=== PATIENT | female | born 1960 | race American Indian/Alaskan Native ===

== ENCOUNTER 2017-01-07 10:56 | Emergency (ER) | payer MEDICARE ==
[2017-01-07 11:35] VITALS: BP 145/76
[2017-01-07 12:41] LABS: Hematocrit 39.6 % (30.3-42.9); Hemoglobin 13.2 gm/dl (10.1-14.3); Mean Corpuscular HGB Conc 33 % (30-34); Mean Corpuscular Hemoglobin 29 pg (28-32); Mean Corpuscular Volume 88 fl (79-97); Platelet Count 299 K/mm3 (140-440); Red Blood Count 4.51 M/mm3 (3.65-5.03); Red Cell Distribution Width 14.4 % (13.2-15.2)
[2017-01-07 12:43] LABS: Anion Gap 16 mmol/L; BUN/Creatinine Ratio 6.66; Blood Urea Nitrogen 4 mg/dL (7-17); Calcium 9.4 mg/dL (8.4-10.2); Carbon Dioxide 27 mmol/L (22-30); Chloride 104.7 mmol/L (98-107); Glucose 112 mg/dL (65-100); Potassium 3.6 mmol/L (3.6-5.0); Sodium 144 mmol/L (137-145)
[2017-01-07 13:47] LABS: Basophils % (Manual) 0 % (0.0-1.8); Blastocytes % (Manual) 0 %; Eosinophils % (Manual) 0 % (0.0-4.3)
[2017-01-07 13:48] LABS: Diff Status Complete; RBC Morphology Normal
--- NOTE | 2017-01-07 15:45 | XRay Report ---
Chest 2 views: History: Chest pain. Findings: Heart size is upper limit of normal. Trachea is midline. No consolidation, pneumothorax or pleural effusion. Impression: No acute cardiopulmonary findings.
[2017-01-07] MEDS ORDERED: TORADOL IM ONE (16:19)
--- NOTE | 2017-01-07 16:24 | Emergency Department Report ---
ED Shortness of Breath HPI - General Chief Complaint: Upper Respiratory Infection Stated Complaint: CHEST COLD Time Seen by Provider: 01/07/17 16:15 Source: patient Mode of arrival: Ambulatory Limitations: No Limitations - History of Present Illness Initial Comments: 56 years old coming today with a main complaint of shortness of breath cough and chest pain this pain going on for 3 days symptoms started with an upper respiratory symptoms including runny nose and now she's been coughing a yellowish sputum denied any fever. She describes her chest pain as sharp left sided not radiating worse when she takes a deep breath MD Complaint: shortness of breath, cough, chest pain -: Gradual, days(s) (3 days) Severity: moderate Pain Scale: 5 Quality: sharp - Related Data Previous Rx's Medication Instructions Recorded Last Taken Type ALBUTEROL Inhaler [ProAir HFA 2 puff IH QID PRN #1 inhalation 01/07/17 Unknown Rx Inhaler] Amoxicillin [Amoxicillin TAB] 875 mg PO BID #14 tablet 01/07/17 Unknown Rx P-Ephed HCl/Codeine/Guaifen 10 ml PO Q4H PRN #100 ml 01/07/17 Unknown Rx [Cheratussin DAC 30-10-100 mg/5 ml] Allergies Allergy/AdvReac Type Severity Reaction Status Date / Time No Known Allergies Allergy Unverified 01/07/17 11:30 ED Review of Systems ROS: Stated complaint: CHEST COLD Other details as noted in HPI Comment: All other systems reviewed and negative Constitutional: denies: chills, diaphoresis ENT: throat pain Respiratory: cough, shortness of breath Cardiovascular: chest pain Gastrointestinal: denies: nausea, vomiting ED Past Medical Hx - Past Medical History Previous Medical History?: Yes Hx Hypertension: Yes Hx Diabetes: Yes - Surgical History Past Surgical History?: Yes Additional Surgical History: Colonoscopy - Social History Smoking Status: Current Every Day Smoker Substance Use Type: Alcohol, Prescribed - Medications Home Medications: Home Medications Medication Instructions Recorded Confirmed Last Taken Type ALBUTEROL Inhaler [ProAir HFA 2 puff IH QID PRN #1 inhalation 01/07/17 Unknown Rx Inhaler] Amoxicillin [Amoxicillin TAB] 875 mg PO BID #14 tablet 01/07/17 Unknown Rx P-Ephed HCl/Codeine/Guaifen 10 ml PO Q4H PRN #100 ml 09/20/17 Unknown Rx [Cheratussin DAC 30-10-100 mg/5 ml] ED Physical Exam - General Limitations: No Limitations General appearance: alert - Head Head exam: Present: atraumatic, normocephalic - Respiratory Respiratory exam: Present: decreased breath sounds. Absent: respiratory distress, wheezes, rales, rhonchi - Cardiovascular Cardiovascular Exam: Present: regular rate, normal rhythm, normal heart sounds - GI/Abdominal GI/Abdominal exam: Present: soft. Absent: tenderness, guarding, rebound, normal bowel sounds, mass, bruit, pulsatile mass - Extremities Exam Extremities exam: Present: normal inspection - Back Exam Back exam: Present: normal inspection. Absent: CVA tenderness (R), CVA tenderness (L) - Neurological Exam Neurological exam: Present: alert, oriented X3, CN II-XII intact - Skin Skin exam: Present: warm, intact, normal color ED Course Vital Signs 01/07/17 11:30 Temperature 98.8 F Pulse Rate 62 Respiratory 18 Rate Blood Pressure 145/76 O2 Sat by Pulse 98 Oximetry - Reevaluation(s) Reevaluation #1: 01/07/17 16:23 Patient stated that she is feeling better. Discharged patient to follow up with her primary care physician if symptoms get worse patient to come back to the ER. ED Medical Decision Making - Lab Data Result diagrams: 01/07/17 12:11 01/07/17 12:11 - EKG Data -: EKG Interpreted by Me EKG shows normal: sinus rhythm - EKG Data Interpretation: no acute changes - Radiology Data Radiology results: report reviewed Critical care attestation.: If time is entered above; I have spent that time in minutes in the direct care of this critically ill patient, excluding procedure time. ED Disposition Clinical Impression: Chest pain, Acute bronchitis Disposition: DC-01 TO HOME OR SELFCARE Is pt being admited?: No Condition: Stable Instructions: Chest Pain (ED), Costochondritis (ED), Acute Bronchitis (ED) Prescriptions: ALBUTEROL Inhaler [ProAir HFA Inhaler] 2 puff IH QID PRN #1 inhalation PRN Reason: Shortness Of Breath Amoxicillin [Amoxicillin TAB] 875 mg PO BID #14 tablet P-Ephed HCl/Codeine/Guaifen [Cheratussin DAC 30-10-100 mg/5 ml] 10 ml PO Q4H PRN #100 ml PRN Reason: Cough Referrals: INDERJIT STEVEN MD [Primary Care Provider] - 3-5 Days
== END 2017-01-07 16:37 | disposition home or self-care (01) ==
LOC: ED 10:56
DX: J20.9 Acute bronchitis, unspecified (principal); R07.9 Chest pain, unspecified; I10 Essential (primary) hypertension; E11.9 Type 2 diabetes mellitus without complications
CPT/HCPCS: 36415; 71020; 80048; 84484; 85007; 85025; 93005; 93010; 96372; 99284; J1885

== ENCOUNTER 2017-04-30 10:01 | Emergency (ER) | payer MEDICARE ==
[2017-04-30 10:48] VITALS: BP 128/83
--- NOTE | 2017-04-30 16:13 | Emergency Department Report ---
ED ENT HPI - General Chief complaint: Dental/Oral Stated complaint: TOOTHACHE Time Seen by Provider: 04/30/17 16:12 Source: patient Mode of arrival: Ambulatory Limitations: No Limitations - History of Present Illness Initial comments: 56-year-old female past medical history diabetes hypertension periodontal disease and multiple cavities presents with complaint of acute on chronic left upper toothache. Patient has multiple severe dental cavities. Patient denies fevers chills pus or blood drainage from mouth. Speaking in full sentences no trismus noted drooling no stridor. Patient states she has been trying to see a dentist but has not been able to due to insurance issues. MD complaint: tooth pain Onset/Timin -: week(s) Location: tooth # 1 - Multiple dental cavities with small dental abscess here Severity scale (0 -10): 6 Quality: aching Consistency: constant Improves with: none Worsens with: eating Context- Dental: history of dental caries, poor dental care Associated Symptoms: gum swelling, toothache - Related Data Previous Rx's Medication Instructions Recorded Last Taken Type ALBUTEROL Inhaler [ProAir HFA 2 puff IH QID PRN #1 inhalation 01/07/17 Unknown Rx Inhaler] Amoxicillin [Amoxicillin TAB] 875 mg PO BID #14 tablet 01/07/17 Unknown Rx Pseudoephed/Codeine/Guaifen 10 ml PO Q4H PRN #100 ml 01/07/17 Unknown Rx [Cheratussin DAC 30-10-100 mg/5 ml] Acetaminophen/Codeine [Tylenol 1 tab PO Q6H PRN #12 tab 04/30/17 Unknown Rx /Codeine # 3 tab] Benzocaine [Orajel Liquid 20%] 1 ml MM Q6HR PRN #1 bottle 04/30/17 Unknown Rx Chlorhexidine Mouthwash [Peridex] 15 ml MM BID #1 bottle 04/30/17 Unknown Rx Clindamycin [Clindamycin CAP] 300 mg PO Q6H #28 capsule 04/30/17 Unknown Rx Ibuprofen [Motrin] 800 mg PO Q8HR PRN #30 tablet 04/30/17 Unknown Rx Allergies Allergy/AdvReac Type Severity Reaction Status Date / Time No Known Allergies Allergy Unverified 01/07/17 11:30 ED Dental HPI - General Chief complaint: Dental/Oral Stated complaint: TOOTHACHE Time Seen by Provider: 04/30/17 16:12 Source: patient Mode of arrival: Ambulatory Limitations: No Limitations - Related Data Previous Rx's Medication Instructions Recorded Last Taken Type ALBUTEROL Inhaler [ProAir HFA 2 puff IH QID PRN #1 inhalation 01/07/17 Unknown Rx Inhaler] Amoxicillin [Amoxicillin TAB] 875 mg PO BID #14 tablet 01/07/17 Unknown Rx Pseudoephed/Codeine/Guaifen 10 ml PO Q4H PRN #100 ml 01/07/17 Unknown Rx [Cheratussin DAC 30-10-100 mg/5 ml] Acetaminophen/Codeine [Tylenol 1 tab PO Q6H PRN #12 tab 04/30/17 Unknown Rx /Codeine # 3 tab] Benzocaine [Orajel Liquid 20%] 1 ml MM Q6HR PRN #1 bottle 04/30/17 Unknown Rx Chlorhexidine Mouthwash [Peridex] 15 ml MM BID #1 bottle 04/30/17 Unknown Rx Clindamycin [Clindamycin CAP] 300 mg PO Q6H #28 capsule 04/30/17 Unknown Rx Ibuprofen [Motrin] 800 mg PO Q8HR PRN #30 tablet 04/30/17 Unknown Rx Allergies Allergy/AdvReac Type Severity Reaction Status Date / Time No Known Allergies Allergy Unverified 01/07/17 11:30 ED Review of Systems ROS: Stated complaint: TOOTHACHE Other details as noted in HPI Constitutional: denies: chills, fever Eyes: denies: eye pain, eye discharge, vision change ENT: dental pain. denies: ear pain, throat pain Respiratory: denies: cough, shortness of breath, wheezing Cardiovascular: denies: chest pain, palpitations Endocrine: no symptoms reported Gastrointestinal: denies: abdominal pain, nausea, diarrhea Genitourinary: denies: urgency, dysuria, discharge Musculoskeletal: denies: back pain, joint swelling, arthralgia Skin: denies: rash, lesions Neurological: denies: headache, weakness, paresthesias Psychiatric: denies: anxiety, depression Hematological/Lymphatic: denies: easy bleeding, easy bruising ED Past Medical Hx - Past Medical History Hx Hypertension: Yes Hx Diabetes: Yes - Surgical History Additional Surgical History: Colonoscopy - Social History Smoking Status: Current Every Day Smoker Substance Use Type: None - Medications Home Medications: Home Medications Medication Instructions Recorded Confirmed Last Taken Type ALBUTEROL Inhaler [ProAir HFA 2 puff IH QID PRN #1 inhalation 01/07/17 Unknown Rx Inhaler] Amoxicillin [Amoxicillin TAB] 875 mg PO BID #14 tablet 01/07/17 Unknown Rx Pseudoephed/Codeine/Guaifen 10 ml PO Q4H PRN #100 ml 01/07/17 Unknown Rx [Cheratussin DAC 30-10-100 mg/5 ml] Acetaminophen/Codeine [Tylenol 1 tab PO Q6H PRN #12 tab 04/30/17 Unknown Rx /Codeine # 3 tab] Benzocaine [Orajel Liquid 20%] 1 ml MM Q6HR PRN #1 bottle 04/30/17 Unknown Rx Chlorhexidine Mouthwash [Peridex] 15 ml MM BID #1 bottle 04/30/17 Unknown Rx Clindamycin [Clindamycin CAP] 300 mg PO Q6H #28 capsule 04/30/17 Unknown Rx Ibuprofen [Motrin] 800 mg PO Q8HR PRN #30 tablet 04/30/17 Unknown Rx ED Physical Exam - General Limitations: No Limitations General appearance: alert, in no apparent distress - Head Head exam: Present: atraumatic, normocephalic - Eye Eye exam: Present: normal appearance, PERRL, EOMI - ENT ENT exam: Present: mucous membranes moist - Expanded ENT Exam Expanded Teeth exam: Present: dental caries, dental tenderness # 1 - Dental Tenderness (dental abscess with cavities here) - Neck Neck exam: Present: normal inspection, full ROM - Respiratory Respiratory exam: Present: normal lung sounds bilaterally. Absent: respiratory distress - Cardiovascular Cardiovascular Exam: Present: regular rate, normal rhythm. Absent: systolic murmur, diastolic murmur, rubs, gallop - GI/Abdominal GI/Abdominal exam: Present: soft, normal bowel sounds - Extremities Exam Extremities exam: Present: normal inspection - Back Exam Back exam: Present: normal inspection - Neurological Exam Neurological exam: Present: alert, oriented X3 - Psychiatric Psychiatric exam: Present: normal affect, normal mood - Skin Skin exam: Present: warm, dry, intact, normal color. Absent: rash ED Course Vital Signs 04/30/17 10:42 Temperature 98.3 F Pulse Rate 108 H Respiratory 18 Rate Blood Pressure 128/83 O2 Sat by Pulse 96 Oximetry ED Medical Decision Making - Medical Decision Making A/P: dental cavities, toothache, dental abscess 1- Motrin when necessary, amoxicillin ten-day course, Orajel when necessary, Peridex mouthwash daily basis, short course codeine when necessary 2- I provided patient with information for multiple dental clinics to follow up and stressed the importance of dental follow-up as he has multiple cavities that require dental fixation or instrumentation 3- no clinical signs of facial abscess, no Amado's angina, no induration or cellulitis of floor of mouth or tongue 4- patient able to tolerate by mouth before discharge 5- no signs of facial infection. Advised patient that if she does not take antibiotics with follow-up with a dentist as soon as possible that a can result in potentially serious or dangerous infection to develop in jaw or face. Patient states that he understood these instructions. I advised patient to return to the ED for any persistent unrelenting nausea or vomiting fever or chills or headaches. Critical care attestation.: If time is entered above; I have spent that time in minutes in the direct care of this critically ill patient, excluding procedure time. ED Disposition Clinical Impression: Dental cavities Disposition: - TO HOME OR SELFCARE Is pt being admited?: No Does the pt Need Aspirin: No Condition: Stable Instructions: Dental Caries (ED), Toothache (ED) Prescriptions: Acetaminophen/Codeine [Tylenol /Codeine # 3 tab] 1 tab PO Q6H PRN #12 tab PRN Reason: Toothache Benzocaine [Orajel Liquid 20%] 1 ml MM Q6HR PRN #1 bottle PRN Reason: Toothache Chlorhexidine Mouthwash [Peridex] 15 ml MM BID #1 bottle Clindamycin [Clindamycin CAP] 300 mg PO Q6H #28 capsule Ibuprofen [Motrin] 800 mg PO Q8HR PRN #30 tablet PRN Reason: Toothache Referrals: [facility] [Outside] - 3-5 Days Forms: Work/School Release Form(ED) Time of Disposition: 16:53
[2017-04-30] MEDS ORDERED: CLEOCIN PO ONE (16:53)
[2017-04-30] MEDS ORDERED: TYLENOL #3 PO ONE (16:53)
== END 2017-04-30 17:09 | disposition home or self-care (01) ==
LOC: ED 10:01
DX: K02.9 Dental caries, unspecified (principal); I10 Essential (primary) hypertension; E11.9 Type 2 diabetes mellitus without complications; F17.200 Nicotine dependence, unspecified, uncomplicated
CPT/HCPCS: 99282